=== PATIENT | female | born 1950 | race Caucasian/White ===

== ENCOUNTER → 2021-05-02 | Outpatient (REF) | payer MEDICARE, OTHER | LOC: M LAB REF 17:32 | PROVIDERS: ATTEND Dermatology | DX: D17.39 Benign lipomatous neoplasm of skin and subcutaneous tissue of other sites (principal) ==

== ENCOUNTER → 2022-02-26 | Outpatient (REF) | payer MEDICARE, OTHER | LOC: M SFHCDERM 17:53 | PROVIDERS: ATTEND Dermatology | DX: S81.801A Unspecified open wound, right lower leg, initial encounter (principal); X58.XXXA Exposure to other specified factors, initial encounter; Y92.9 Unspecified place or not applicable; Y93.9 Activity, unspecified; Y99.9 Unspecified external cause status ==

== ENCOUNTER → 2022-05-07 | Outpatient (REF) | payer MEDICARE, OTHER | LOC: M SFHCDERM 17:30 | PROVIDERS: ATTEND Dermatology | DX: C44.722 Squamous cell carcinoma of skin of right lower limb, including hip (principal) ==

== ENCOUNTER → 2023-03-21 | Outpatient (CLI) | payer MEDICARE | LOC: M RAD 13:16 | PROVIDERS: ATTEND Surgery | DX: L97.912 Non-pressure chronic ulcer of unspecified part of right lower leg with fat layer exposed (principal) ==

== ENCOUNTER 2025-04-18 13:45 | Inpatient (IN) | payer MEDICAID, MEDICARE, OTHER ==
[~2025-04-18] VITALS: Ht 167.6 cm; Wt 82.7 kg
[2025-04-18 14:56] LABS: BASO # 0.1 10^3/uL (0.0-0.2); BASO % 0.4 % (0.0-1.0); EOS # 0.1 10^3/uL (0.0-0.5); EOS % 0.4 % (0.0-3.0); LYMPH # 0.8 10^3/uL (1.5-5.0); LYMPH % 5.9 % (24.0-44.0); MONO # 1.2 10^3/uL (0.0-0.8); MONO % 8.7 % (2.0-8.0); NEUTROPHILS # 12.0 10^3/uL (1.5-8.5); NEUTROPHILS % 84.2 % (36.0-66.0); PLATELET COUNT, AUTOMATED 347 10^3/uL (150-450)
[2025-04-18 15:26] LABS: CALCIUM LEVEL 8.6 MG/DL (8.3-10.6); CARBON DIOXIDE LEVEL 28.0 MMOL/L (20-31); CHLORIDE LEVEL 101.0 MMOL/L (98-107); CREATININE FOR GFR 0.93 MG/DL (0.55-1.30); GLOMERULAR FILTRATION RATE 64.9 (>39); POTASSIUM SERUM 4.2 MMOL/L (3.5-5.1); SODIUM LEVEL 139.0 MMOL/L (136-145)
[2025-04-18] MEDS ORDERED: ISOVUE-370 76% 100 ML VIAL As Ordered ONE (15:38)
[2025-04-18 15:43] LABS: ERYTHROCYTE SEDIMENTATION RATE 44 mm/hr (0-30)
[2025-04-18] MEDS: HYDROMORPHONE HCL 0.5 MG/0.5 ML SYRINGE IV PRN (16:02)
[2025-04-18 16:03] LABS: C REACTIVE PROTEIN QUANTITATIV 24.54 MG/DL (<1.0)
[2025-04-18] MEDS: PIPERACILLIN/TAZOBACTAM SOD 4.5 GM in DEXTROSE 5% (D5W) ADV/MINI-BAG 50 ML IV ONE (18:39)
[2025-04-18] MEDS: VANCOMYCIN HCL 1,500 MG, VIAL MATE ADAPTER 1 EACH in NS 500 ML IV ONE (20:55)
[2025-04-18] MEDS: ACETAMINOPHEN 500 MG TAB PO SCH (22:00)
[2025-04-18] MEDS ORDERED: ZOLO100T PO (22:20)
[2025-04-18] MEDS ORDERED: D-50CAP PO (22:20)
[2025-04-18] MEDS ORDERED: HYDR200T46 PO (22:20)
[2025-04-18] MEDS ORDERED: GABA-284 PO (22:20)
[2025-04-18] MEDS ORDERED: LOSA100T46 PO (22:20)
[2025-04-18] MEDS ORDERED: PRED25TA PO (22:20)
[2025-04-18] MEDS ORDERED: PROBCAP14 PO (22:33)
[2025-04-18] MEDS ORDERED: CVSTAB PO (22:33)
[2025-04-18] MEDS ORDERED: TRAM50TA2 PO (22:33)
[2025-04-18] MEDS ORDERED: HOME MED LIST COMPLETE! XX SCH (22:35)
[2025-04-18] MEDS: LR 1,000 ML IV SCH (22:45)
[2025-04-18] MEDS ORDERED: VANCOMYCIN HCL 1,000 MG in IV FLUID PLACE HOLDER 1 EA IV SCH (22:45)
[2025-04-18] MEDS ORDERED: HYDROMORPHONE HCL 0.5 MG/0.5 ML SYRINGE IV PRN (22:45)
[2025-04-19 01:05] VITALS: BP 107/56; TEMP 97.9; O2SAT 93
[2025-04-19] MEDS: PIPERACILLIN/TAZOBACTAM SOD 4.5 GM in DEXTROSE 5% (D5W) ADV/MINI-BAG 50 ML IV SCH (02:09)
[2025-04-19 03:46] LABS: INR 1.11
[2025-04-19 03:59] LABS: ALT/SGPT 11.0 U/L (7.0-40); AST/SGOT 13.0 U/L (<34)
[2025-04-19 04:00] VITALS: BP 107/58; TEMP 97.3; O2SAT 91
[2025-04-19 07:31] LABS: BASO # 0.1 10^3/uL (0.0-0.2); BASO % 0.6 % (0.0-1.0); EOS # 0.2 10^3/uL (0.0-0.5); EOS % 2.0 % (0.0-3.0); LYMPH # 0.9 10^3/uL (1.5-5.0); LYMPH % 9.9 % (24.0-44.0); MONO # 1.0 10^3/uL (0.0-0.8); MONO % 12.0 % (2.0-8.0); NEUTROPHILS # 6.5 10^3/uL (1.5-8.5); NEUTROPHILS % 75.0 % (36.0-66.0); PLATELET COUNT, AUTOMATED 279 10^3/uL (150-450)
[2025-04-19 07:54] LABS: VANCOMYCIN RANDOM 11.2 UG/ML
[2025-04-19 07:58] LABS: ALT/SGPT 10.0 U/L (7.0-40); AST/SGOT 13.0 U/L (<34); C REACTIVE PROTEIN QUANTITATIV 21.18 MG/DL (<1.0); CALCIUM LEVEL 7.9 MG/DL (8.3-10.6); CARBON DIOXIDE LEVEL 26.0 MMOL/L (20-31); CHLORIDE LEVEL 104.0 MMOL/L (98-107); CREATININE FOR GFR 0.88 MG/DL (0.55-1.30); GLOMERULAR FILTRATION RATE 69.4 (>39); POTASSIUM SERUM 4.0 MMOL/L (3.5-5.1); SODIUM LEVEL 141.0 MMOL/L (136-145)
[2025-04-19] MEDS: GABAPENTIN 100 MG CAP PO SCH (08:27)
[2025-04-19] MEDS: HYDROMORPHONE HCL 0.5 MG/0.5 ML SYRINGE IV PRN (08:27)
[2025-04-19] MEDS: SERTRALINE 100 MG TAB PO SCH (08:27)
[2025-04-19] MEDS: HYDROXYCHLOROQUINE 200 MG TAB PO SCH (08:27)
[2025-04-19] MEDS: VANCOMYCIN HCL 750 MG, VIAL MATE ADAPTER 1 EACH in NS 250 ML IV SCH (08:27)
[2025-04-19] MEDS: HEPARIN SOD 5000 UNITS/ML 1 ML VIAL/SYRINGE SC SCH (08:28)
[2025-04-19] MEDS: LOSARTAN 50 MG TABLET PO SCH (08:34)
[2025-04-19 11:19] VITALS: BP 109/58; TEMP 97.9; O2SAT 91
[2025-04-19] MEDS: LIDOCAINE 1% MDV 20 ML VIAL SC STA (12:31)
[2025-04-19 20:00] VITALS: BP 132/69; TEMP 97.5; O2SAT 94
[2025-04-20] VITALS (10 sets, daily range): BP systolic 101–131; BP diastolic 57–97; TEMP 97.2–97.9; O2SAT 87–99
[2025-04-20 06:46] LABS: PLATELET COUNT, AUTOMATED 293 10^3/uL (150-450)
[2025-04-20 07:26] LABS: CALCIUM LEVEL 8.1 MG/DL (8.3-10.6); CARBON DIOXIDE LEVEL 26.0 MMOL/L (20-31); CHLORIDE LEVEL 110.0 MMOL/L (98-107); CREATININE FOR GFR 0.76 MG/DL (0.55-1.30); GLOMERULAR FILTRATION RATE 82.7 (>39); POTASSIUM SERUM 4.4 MMOL/L (3.5-5.1); SODIUM LEVEL 144.0 MMOL/L (136-145)
[2025-04-20] MEDS: VANCOMYCIN HCL 1,000 MG, VIAL MATE ADAPTER 1 EACH in NS 250 ML IV SCH (09:13)
[2025-04-20] MEDS ORDERED: LIDOCAINE 2% 100 MG/5 ML SDV (FOR ANES.) As Ordered ONE (12:15)
[2025-04-20] MEDS ORDERED: MIDAZOLAM INJ 2 MG/2 ML VIAL As Ordered ONE (12:15)
[2025-04-20] MEDS ORDERED: PHENYLephrine 500MCG 5ML (100MCG/ML) SYRINGE As Ordered ONE (12:36)
[2025-04-20] MEDS ORDERED: ONDANSETRON 4MG 2ML VIAL As Ordered ONE (12:37)
[2025-04-20] MEDS ORDERED: dexAMETHasone 4 MG/ML 1 ML VIAL As Ordered ONE (12:37)
[2025-04-20] MEDS: HYDROMORPHONE HCL 0.5 MG/0.5 ML SYRINGE IV PRN (13:25)
[2025-04-21 00:45] VITALS: BP 123/68; TEMP 97.5; O2SAT 95
[2025-04-21] MEDS ORDERED: ZOSYN 4.5GM VIAL As Ordered ONE (01:50)
[2025-04-21 04:45] VITALS: BP 119/64; TEMP 97.9; O2SAT 98
[2025-04-21 06:29] LABS: PLATELET COUNT, AUTOMATED 274 10^3/uL (150-450)
[2025-04-21 06:59] LABS: CALCIUM LEVEL 7.6 MG/DL (8.3-10.6); CARBON DIOXIDE LEVEL 22 MMOL/L (20-31); CHLORIDE LEVEL 110 MMOL/L (98-107); CREATININE FOR GFR 0.67 MG/DL (0.55-1.30); GLOMERULAR FILTRATION RATE > 90.0 (>39); POTASSIUM SERUM 4.8 MMOL/L (3.5-5.1); SODIUM LEVEL 143 MMOL/L (136-145)
[2025-04-21 08:02] VITALS: BP 117/66; TEMP 97.3; O2SAT 96
[2025-04-21] MEDS ORDERED: HYDROMORPHONE HCL 0.5 MG/0.5 ML SYRINGE IV PRN (11:15)
[2025-04-21] MEDS ORDERED: LORazepam 0.5 MG TAB PO PRN (11:20)
[2025-04-21 11:33] VITALS: BP 103/55; TEMP 97.9; O2SAT 96
[2025-04-21] MEDS: ONDANSETRON 4MG 2ML VIAL IV PRN (12:57)
[2025-04-21] MEDS: HYDROMORPHONE HCL 0.5 MG/0.5 ML SYRINGE IV PRN (12:58)
[2025-04-21 20:05] VITALS: BP 124/68; TEMP 97.7; O2SAT 96
[2025-04-22 04:29] VITALS: BP 142/74; TEMP 97.9; O2SAT 96
[2025-04-22 06:44] LABS: PLATELET COUNT, AUTOMATED 302 10^3/uL (150-450)
[2025-04-22 07:10] LABS: CALCIUM LEVEL 8.0 MG/DL (8.3-10.6); CARBON DIOXIDE LEVEL 28 MMOL/L (20-31); CHLORIDE LEVEL 110 MMOL/L (98-107); CREATININE FOR GFR 0.67 MG/DL (0.55-1.30); GLOMERULAR FILTRATION RATE > 90.0 (>39); POTASSIUM SERUM 4.7 MMOL/L (3.5-5.1); SODIUM LEVEL 145 MMOL/L (136-145)
[2025-04-22 08:04] LABS: C REACTIVE PROTEIN QUANTITATIV 7.97 MG/DL (<1.0)
[2025-04-22 12:30] VITALS: BP 137/72; TEMP 97.9; O2SAT 95
[2025-04-22 20:00] VITALS: BP 131/67; TEMP 98.1; O2SAT 100
[2025-04-23 04:00] VITALS: BP 133/67; TEMP 98.2; O2SAT 94
[2025-04-23] MEDS ORDERED: PERCOCET 5MG/325MG TAB PO PRN (08:30)
[2025-04-23] MEDS: GABAPENTIN 300 MG CAP PO SCH (09:10)
[2025-04-23] MEDS: PERCOCET 5MG/325MG TAB PO PRN (09:10)
[2025-04-23 11:36] LABS: PLATELET COUNT, AUTOMATED 182 10^3/uL (150-450)
[2025-04-23 11:56] LABS: C REACTIVE PROTEIN QUANTITATIV 6.24 MG/DL (<1.0); CALCIUM LEVEL 7.8 MG/DL (8.3-10.6); CARBON DIOXIDE LEVEL 25 MMOL/L (20-31); CHLORIDE LEVEL 106 MMOL/L (98-107); CREATININE FOR GFR 0.62 MG/DL (0.55-1.30); GLOMERULAR FILTRATION RATE > 90.0 (>39); POTASSIUM SERUM 4.8 MMOL/L (3.5-5.1); SODIUM LEVEL 140 MMOL/L (136-145)
[2025-04-23 12:05] VITALS: BP 106/50; TEMP 97.7; O2SAT 97
[2025-04-23 20:10] VITALS: BP 136/68; TEMP 98.1; O2SAT 95
[2025-04-24 04:13] VITALS: BP 124/64; TEMP 97.7; O2SAT 94
[2025-04-24 08:51] VITALS: BP 128/68
[2025-04-24] MEDS ORDERED: GABA-284 PO (09:18)
[2025-04-24] MEDS ORDERED: TRAM50TA2 PO (09:18)
[2025-04-24] MEDS ORDERED: LEVO1TAB40 PO (09:19)
[2025-04-24 11:25] LABS: PLATELET COUNT, AUTOMATED 383 10^3/uL (150-450)
[2025-04-24 11:47] LABS: C REACTIVE PROTEIN QUANTITATIV 4.63 MG/DL (<1.0); CALCIUM LEVEL 8.7 MG/DL (8.3-10.6); CARBON DIOXIDE LEVEL 28 MMOL/L (20-31); CHLORIDE LEVEL 110 MMOL/L (98-107); CREATININE FOR GFR 0.68 MG/DL (0.55-1.30); GLOMERULAR FILTRATION RATE > 90.0 (>39); POTASSIUM SERUM 4.2 MMOL/L (3.5-5.1); SODIUM LEVEL 147 MMOL/L (136-145)
[2025-04-24 12:00] VITALS: BP 128/69; TEMP 97.9; O2SAT 98
== END 2025-04-24 13:34 | disposition home or self-care (01) | DRG 349 ==
LOC: M ED 13:45 → EEVIPCON 22:42 → M ED INP 22:42 → M MSPAV 04-19 01:05
PROVIDERS: ADMIT Student in an Organized Health Care Education/Training Program; ATTEND Internal Medicine
PROC: B246ZZZ Ultrasonography of Right and Left Heart (ICD-10-PCS; 2025-04-19)
PROC: 0Y9J3ZX Drainage of Left Lower Leg, Percutaneous Approach, Diagnostic (ICD-10-PCS; principal; 2025-04-19 11:30)
PROC: 0Y9J0ZZ Drainage of Left Lower Leg, Open Approach (ICD-10-PCS; 2025-04-20)
DX: T87.44 Infection of amputation stump, left lower extremity (principal); L02.416 Cutaneous abscess of left lower limb; L03.116 Cellulitis of left lower limb; I08.1 Rheumatic disorders of both mitral and tricuspid valves; M19.90 Unspecified osteoarthritis, unspecified site; I10 Essential (primary) hypertension; F32.A Depression, unspecified; F43.10 Post-traumatic stress disorder, unspecified; Z96.651 Presence of right artificial knee joint; Z79.52 Long term (current) use of systemic steroids; Z79.899 Other long term (current) drug therapy; Z89.512 Acquired absence of left leg below knee